=== PATIENT | female | born 1985 | race Caucasian/White ===

== ENCOUNTER → 2019-05-19 | Outpatient (CLI) | payer BC ==
[~2019-05-19] MED LIST: UNICOMPLEX M TA1 TA1 PO; VITAMIN B122500 MCG PO
== END ==
LOC: M.ULTRA 14:00
DX: K11.1 Hypertrophy of salivary gland (principal); Z88.2 Allergy status to sulfonamides; Z88.8 Allergy status to other drugs, medicaments and biological substances